=== PATIENT | female | born 1995 | race Caucasian/White ===

== ENCOUNTER 2017-03-01 13:43 | Emergency (ER) | payer OTHER, BC ==
[~2017-03-01] VITALS: Ht 157.5 cm; Wt 52.0 kg
[~2017-03-01 13:43] MED LIST: BCPILLS PO; EPP3/2 IM
[2017-03-01 14:02] VITALS: TEMP 37; Ht 157.5 cm; Wt 52.0 kg
[2017-03-01] MEDS ORDERED: EPINEPHRINE ADULT AUTO-INJECT 0.3 MG SYR IM STA (14:12)
[2017-03-01] MEDS ORDERED: RANITIDINE HCL 50 MG/100 ML D5W IV STA (14:12)
[2017-03-01] MEDS ORDERED: METHYLPREDNISOLONE 1000 MG/16 ML IV STA (14:12)
[2017-03-01] MEDS ORDERED: DiphenhydrAMINE HCL 50 MG/ML VIAL IV STA (14:12)
[2017-03-01] MEDS ORDERED: SODIUM CHLORIDE 0.9% 1000ML 1,000 ML IV ONE (14:15)
[2017-03-01] MEDS ORDERED: METHYLPREDNISOLONE 125 MG VIAL IV STA (14:18)
--- NOTE | 2017-03-01 14:18 | EMERGENCY ROOM VISIT NOTE ---
History First contact with patient: 14:07 Chief Complaint: ALLERGIC REACTION Stated Complaint: ALLERGIC REACTION,BLOTCHES,THROAT TIGHT Nursing Triage Summary: Pt has a nut allergy. Pt was walking on campus. Pt started to have a difficult time breathing. Pt became itchy and red. Pt does have an EPI pen but did not use it. Pt came directly to the ED History of Present Illness The patient is a 21 year old female who presents to the Emergency Room with complaints of an allergic reaction that started prior to arrival. The patient was walking on [employer] when she began getting hot, flushed, itchy and short of breath. The patient reports wheezing. She does carry an EpiPen. She did not use it. The patient is allergic to nuts. She denies eating any nuts to her knowledge or being exposed to any nuts. She denies any dizziness. She is feeling a tightness in her throat. Review of Systems 10 system review performed and negative unless noted in HPI or below Past Medical/Surgical History Medical Problems: (1) Nut allergy Social History Smoking Status: Current Every Day Smoker Marital Status: in relationship Occupation Status: employed Current/Historical Medications Scheduled Control Pills ( Control Pills), 1 TAB PO DAILY Epinephrine (Epipen 2-Jarad), 0.3 MG IM DIRECTED Prednisone (Prednisone), 50 MG PO DAILY Ranitidine (Zantac), 150 MG PO BID Physical Exam Vital Signs Date Time Temp Pulse Resp B/P (MAP) Pulse Ox O2 Delivery O2 Flow Rate FiO2 03/01/17 18:17 90 16 144/83 98 03/01/17 16:52 83 16 134/80 100 Room Air 03/01/17 16:14 80 16 141/91 98 Room Air 03/01/17 14:32 103 03/01/17 14:30 103 16 120/83 Room Air 03/01/17 14:02 37.0 103 20 167/77 100 Room Air Physical Exam VITALS: Vitals are noted on the nurse's note and reviewed by myself. Vital signs stable. GENERAL: 21-year-old female, anxious in appearance,, SKIN: Erythema noted to the face. Blotchy erythema to the chest.. HEAD: Normocephalic atraumatic. Slight edema to the right eyelid. MOUTH: Mucous membranes moist. Tonsils are not enlarged. Pharynx without erythema or exudate. Uvula midline. Airway patent. Tongue does not deviate. No swelling of the oral mucosa NECK: Supple without nuchal rigidity. No lymphadenopathy. Cervical spine is nontender. No JVD. HEART: Tachycardic, regular rhythm without murmurs gallops or rubs. LUNGS: Clear to auscultation bilaterally without wheezes, rales or rhonchi. No accessory muscle use. ABDOMEN: Positive bowel sounds x 4.Soft, MUSCULOSKELETAL: No muscle atrophy, erythema, or edema noted. Strength 5/5 throughout. NEURO: Patient was alert and oriented to person place and time. Normal sensation to touch. No focal neurological deficits. Medical Decision & Procedures Medications Administered Medications (Trade) Dose Ordered Sig/Dany Route Start Time Stop Time Status Last Admin Dose Admin Epinephrine (Epipen) 0.3 mg NOW STAT IM 03/01/17 14:12 03/01/17 14:14 DC 03/01/17 14:12 0.3 MG Diphenhydramine HCl (Benadryl Inj) 50 mg NOW STAT IV 03/01/17 14:12 03/01/17 14:14 DC 03/01/17 14:25 50 MG Ranitidine HCl (zANTac IV) 50 mg NOW STAT IV 03/01/17 14:12 03/01/17 14:14 DC 03/01/17 14:12 50 MG Sodium Chloride 1,000 ml @ 999 mls/hr Q1H1M ONCE IV 03/01/17 14:15 03/01/17 15:15 DC 03/01/17 14:15 999 MLS/HR Methylprednisolone Sodium Succinate (Solu-Medrol IV) 125 mg NOW STAT IV 03/01/17 14:18 03/01/17 14:19 DC 03/01/17 14:25 125 MG Methylprednisolone Sodium Succinate (Solu-Medrol IV) 125 mg STK-MED ONCE .ROUTE 03/01/17 14:19 03/01/17 14:20 DC 03/01/17 14:19 125 MG ED Course Patient was seen and examined Vital signs including blood pressure were reviewed medications list was verified with patient Labs were obtained, and a saline lock was established The patient was put on a monitor. The patient was given an EpiPen injection IM. She was given Benadryl 50 mg, Solu-Medrol 125 mg, ranitidine 50 g IV. She was bolused with 1 L of normal saline. The patient was observed for 4 hours. Her symptoms dramatically improved. I reviewed discharge instructions the patient. They voiced understanding and had no further questions. Medical Decision Differential diagnosis allergic reaction, anaphylaxis, angioedema This patient is a 21-year-old female that presents to the emergency department with complaints of facial swelling, wheezing and itching. She has a nut allergy. On exam, it does appear that she is having an allergic reaction. The patient reports an anaphylactic reaction to nuts. She was treated as such with an EpiPen, Solu-Medrol, Benadryl, ranitidine and fluids. She was observed for 4 hours. Her symptoms dramatically improved. I believe she is stable to be discharged home. She does have a prescription for her EpiPen. She was also given a prescription for steroids and ranitidine. She agrees to return to the emergency department immediately for any returning symptoms. This chart was completed in part utilizing [employer] Voice Recognition software. Attempts were made to minimize the grammatical errors, random word insertions, pronoun errors and incomplete sentences. Any formal questions or concerns about the content, text or information contained within the body of this dictation should be directly addressed to the provider for clarification. Impression Primary Impression: Allergic reaction Departure Information Dispostion Home / Self-Care Condition GOOD Prescriptions Ranitidine (Zantac) 150 Mg Tab 150 MG PO BID for 4 Days, #8 TAB Prov: Siri De Leon PA-C 03/01/17 Prednisone (Prednisone) 50 Mg Tab 50 MG PO DAILY for 4 Days, #4 TAB Prov: Siri De Leon PA-C 03/01/17 Referrals Laureen Barker M.D. (PCP) Patient Instructions [facility] Additional Instructions You were seen in the emergency department today for an allergic reaction. Please take prednisone 50 mg daily for 4 days starting tomorrow Please take Zantac 1 tab every 12 hours for 4 days starting tonight Please take Benadryl 50 mg every 8 hours for 24 hours. This then may be taken as needed. Carry your EpiPen with him at all times. Return to the emergency department if you have any of the following symptoms: -Difficulty breathing -Difficulty swallowing -Increase swelling or redness of the face -Dizziness -Any other new or concerning symptoms
[2017-03-01] MEDS ORDERED: METHYLPREDNISOLONE 125 MG VIAL ONE (14:19)
[2017-03-01] MEDS ORDERED: PRED50TA PO (18:03)
[2017-03-01] MEDS ORDERED: ZNTT/150 PO (18:03)
[2017-03-01 18:17] VITALS: BP 144/83; PULSE 90; O2SAT 98
== END 2017-03-01 18:18 | disposition home or self-care (01) ==
LOC: C.EDB 13:45 → C.EDA 18:18
DX: T78.40XA Allergy, unspecified, initial encounter (principal); X58.XXXA Exposure to other specified factors, initial encounter; F17.200 Nicotine dependence, unspecified, uncomplicated; Z79.3 Long term (current) use of hormonal contraceptives